=== PATIENT | female | born 1950 ===

== ENCOUNTER 2021-08-24 20:12 | Inpatient (IN) | payer MEDICAID ==
[~2021-08-24] VITALS: Ht 157.5 cm; Wt 68.9 kg
--- NOTE | 2021-08-24 20:22 | NUR ---
pt came in by ra c/o chest pain. pt a/o able to speak in complete sentences. per ra blood glucose is elevated above 400.
--- NOTE | 2021-08-24 20:27 | NUR ---
Dr. Hawk at bedside for MSE
[2021-08-24] MEDS ORDERED: NITROGLYCERIN OINT 1 GM PACKET TP ONE ×2 (20:30→20:56)
[2021-08-24] MEDS ORDERED: ACETAMINOPHEN ES 500 MG TABLET PO ONE (20:30)
[2021-08-24] MEDS ORDERED: ASPI81TA31 PO (20:34)
[2021-08-24] MEDS ORDERED: metoprolol PO (20:34)
[2021-08-24] MEDS ORDERED: LISI10TA29 PO (20:34)
[2021-08-24] MEDS ORDERED: atorvastatin PO (20:34)
[2021-08-24] MEDS ORDERED: amlodipine PO (20:34)
[2021-08-24] MEDS ORDERED: PIOG30TA10 PO (20:34)
[2021-08-24 20:55] LABS: HEMATOCRIT 24.3 % (31.2-41.9); MEAN CORPUSCULAR HEMOGLOBIN 32.7 uug (24.7-32.8); MEAN CORPUSCULAR VOLUME 97.2 fL (75.5-95.3); PLATELET COUNT (AUTO) 181 K/uL (179-408)
[2021-08-24] MEDS ORDERED: ACETAMINOPHEN ES 500 MG TABLET ONE (20:56)
[2021-08-24 21:02] LABS: CREATININE 2.1 mg/dL (0.6-1.3); POTASSIUM 4.7 mmol/L (3.5-5.1)
[2021-08-24 21:15] LABS: BILIRUBIN,DIRECT 0.1 mg/dL (0.0-0.2); BILIRUBIN,TOTAL 0.3 mg/dL (0.2-1.0); TOTAL PROTEIN, SERUM 7.3 g/dL (6.4-8.2)
--- NOTE | 2021-08-24 21:29 | NUR ---
Dr. Hawk sent a page out to Dr. Sainz for admission for pt.
[2021-08-24] MEDS ORDERED: ACETAMINOPHEN 325 MG TABLET PO PRN (21:45)
[2021-08-24] MEDS ORDERED: ONDANSETRON 4 MG/2 ML VIAL IV PRN (21:45)
[2021-08-24] MEDS ORDERED: DEXTROSE 50% 50 ML DISP.SYRIN IV PRN (21:45)
[2021-08-24] MEDS ORDERED: Z GUARD REMEDY PASTE 57 GM TUBE TOP PRN (21:45)
[2021-08-24] MEDS ORDERED: NITROGLYCERIN 0.4 MG/TAB BOTTLE SL PRN (21:45)
[2021-08-24] MEDS ORDERED: FUROSEMIDE 20 MG/2 ML VIAL IV ONE (21:45)
--- NOTE | 2021-08-24 22:20 | NUR ---
pt amb to bathroom pt was steady on her feet.
--- NOTE | 2021-08-24 22:32 | NUR ---
Dr. Sainz here to see pt.
[2021-08-24] MEDS ORDERED: FUROSEMIDE 20 MG/2 ML VIAL ONE (23:13)
--- NOTE | 2021-08-24 23:17 | NUR ---
report called to Todd pt to go to room 307
--- NOTE | 2021-08-24 23:55 | NUR ---
pt transferred to room 307 Todd RN in room to accept pt.
[2021-08-25] VITALS (7 sets, daily range): BP systolic 89–115; BP diastolic 29–60
[2021-08-25] MEDS ORDERED: HEPARIN SODIUM,PORCINE 5,000 UNITS/ML VIAL IV ONE (03:00)
[2021-08-25] MEDS ORDERED: HEPARIN/D5W DRIP 500 ML ONE (03:22)
--- NOTE | 2021-08-25 03:35 | NUR ---
Pt's troponin increased to 2.312 from 0.017; reported by lab at 0234H; referred to [facility]; orders made and carried out; started on heparin drip at 1000 units per hour and bolus given IVP; instructed pt not to take caffeinated drinks and food; continue to observe.
[2021-08-25] MEDS: HEPARIN/D5W DRIP 500 ML IV PRN ×2 (03:38→17:45)
[2021-08-25] MEDS: BLOOD SUGAR DIAGNOSTIC 1 EACH STRIP VI SCH ×4 (06:14→20:34)
[2021-08-25 06:30] LABS: HEMATOCRIT 21.6 % (31.2-41.9)
[2021-08-25 06:32] LABS: MEAN CORPUSCULAR HEMOGLOBIN 32.4 uug (24.7-32.8); PLATELET COUNT (AUTO) 166 K/uL (179-408)
[2021-08-25 07:05] LABS: ALANINE AMINOTRANSFERASE 70 U/L (14-59); ALKALINE PHOSPHATASE 48 U/L (50-136); ASPARTATE AMINOTRANSFERASE 62 U/L (15-37); BILIRUBIN,TOTAL 0.2 mg/dL (0.2-1.0); CARBON DIOXIDE 24 mmol/L (21-32); CHLORIDE 104 mmol/L (98-107); CHOLESTEROL 95 mg/dL (<200); CREATININE 1.9 mg/dL (0.6-1.3); GLUCOSE 125 mg/dL (74-106); HDL CHOLESTEROL 50 mg/dL (40-60); MAGNESIUM 2.5 mg/dL (1.8-2.4); PHOSPHOROUS 4.8 mg/dL (2.5-4.9); POTASSIUM 4.3 mmol/L (3.5-5.1); TOTAL PROTEIN, SERUM 6.4 g/dL (6.4-8.2); TRIGLYCERIDES < 15 MG/DL (30-150); UREA NITROGEN, BLOOD 54 mg/dL (7-18)
--- NOTE | 2021-08-25 08:30 | NUR ---
Received patient report from shift stacker nurse. Arrived to patients room with no distress or discomfort. Patient currently receiving 2L of Oxygen via Nasal Canula. IV site intact and patent. Bed left in lowest position with call light within reach. Comfort measures provided. Will continue to monitor patient.
[2021-08-25] MEDS: ASPIRIN 81 MG TAB.CHEW PO SCH (08:42)
[2021-08-25] MEDS: METOPROLOL TARTRATE 50 MG TABLET PO SCH ×2 (08:42→20:32)
[2021-08-25] MEDS: FAMOTIDINE 20 MG TABLET PO SCH (08:42)
[2021-08-25] MEDS ORDERED: HEPARIN SODIUM,PORCINE 5,000 UNITS/ML VIAL SQ SCH (09:00)
--- NOTE | 2021-08-25 09:00 | NUR ---
Heparin drip 1000 units/hr at 20 mL/hr. Repeat PTT drawn. Waiting for results
--- NOTE | 2021-08-25 10:07 | NUR ---
Troponin result 2.643. Dr. Tolliver notified with order for repeat at 1500
--- NOTE | 2021-08-25 11:40 | NUR ---
Followed up PTT results ordered for 914. Lab still unable to get results from PTT redrawn. Coordinated with pharmacy. Informed Dr. Sen of situation. Will continue with the same rate with Heparin drip at 1000 units/hr. Repeat CBC, PTT, and Troponin ordered for 1499.
[2021-08-25] MEDS: INSULIN REGULAR, HUMAN 300 UNIT/3 ML VIAL SQ PRN ×2 (11:58→20:47)
--- NOTE | 2021-08-25 14:00 | NUR ---
Followed up blood bank. Spoke with [facility]. Blood bank not able to prepare blood at this time. Will endorse to next shift for follow up.
--- NOTE | 2021-08-25 15:00 | NUR ---
Patients record requested from patients primary MD and head of digital. Will endorse to follow up
[2021-08-25 15:17] LABS: HEMATOCRIT 22.6 % (31.2-41.9); MEAN CORPUSCULAR HEMOGLOBIN 32.7 uug (24.7-32.8); MEAN CORPUSCULAR VOLUME 95.6 fL (75.5-95.3); PLATELET COUNT (AUTO) 167 K/uL (179-408)
[2021-08-25 16:40] LABS: *OCCULT BLOOD STOOL NEGATIVE (NEGATIVE)
--- NOTE | 2021-08-25 16:45 | NUR ---
PTT 166. Heparin drip stopped for 1 hour. Repeat PTT ordered in 6 hours at 2245. CBC & Troponin: 1.[address] Tolliver
--- NOTE | 2021-08-25 17:45 | NUR ---
Heparin drip rate decreased by 200 units to 800 units/hr at 16mL/hr restarted.
--- NOTE | 2021-08-25 18:43 | NUR ---
Patient denies chest pain. Heparin drip continued at 800 units.
[2021-08-25] MEDS ORDERED: ATORVASTATIN 40 MG TABLET PO SCH (21:00)
[2021-08-26 00:31] VITALS: BP 137/40
[2021-08-26 00:51] VITALS: BP 102/56
[2021-08-26 05:01] VITALS: BP 145/57
[2021-08-26] MEDS: BLOOD SUGAR DIAGNOSTIC 1 EACH STRIP VI SCH ×3 (06:56→16:23)
[2021-08-26 07:03] LABS: MEAN CORPUSCULAR HEMOGLOBIN 32.6 uug (24.7-32.8); MEAN CORPUSCULAR VOLUME 93.9 fL (75.5-95.3); PLATELET COUNT (AUTO) 173 K/uL (179-408)
[2021-08-26 07:15] LABS: BILIRUBIN,TOTAL 0.5 mg/dL (0.2-1.0); CREATININE 1.8 mg/dL (0.6-1.3); MAGNESIUM 2.4 mg/dL (1.8-2.4); PHOSPHOROUS 4.3 mg/dL (2.5-4.9); POTASSIUM 4.4 mmol/L (3.5-5.1); TOTAL PROTEIN, SERUM 7.4 g/dL (6.4-8.2)
--- NOTE | 2021-08-26 07:24 | NUR ---
Pt rested well in between care; tolerated blood transfusion; remains on heparin drip; no signs of bleeding; continue to monitor; continue plan of care; denies any pain.
[2021-08-26 07:30] VITALS: BP 130/37
--- NOTE | 2021-08-26 08:00 | NUR ---
AWAKE ALERT AND VERBALLY RESPONSIVE ABLE TO MAKE NEEDS KNOWN, DENIES SOB OR CHEST PAIN. NO SS OF BLEEDING, CONTINUE WITH HEPARIN DRIP. SR ON MONITOR
[2021-08-26] MEDS: FAMOTIDINE 20 MG TABLET PO SCH (08:12)
[2021-08-26] MEDS: ASPIRIN 81 MG TAB.CHEW PO SCH (08:12)
[2021-08-26] MEDS: METOPROLOL TARTRATE 50 MG TABLET PO SCH (08:13)
[2021-08-26] MEDS: INSULIN REGULAR, HUMAN 300 UNIT/3 ML VIAL SQ PRN (11:31)
[2021-08-26] MEDS ORDERED: CLOPIDOGREL 75 MG TABLET PO SCH (11:45)
--- NOTE | 2021-08-26 12:00 | NUR ---
SEEN BY DR NIX AND DR CRAVEN REGARDING PLAN OF CARE, PATIENT VERBALIZES DESIRE TO GO AMA. SEE MD NOTES. HEPARIN ISIS ANAYA. SR ON MONITOR
[2021-08-26] MEDS ORDERED: ENOXAPARIN SODIUM 80 MG/0.8 ML DISP.SYRIN SQ SCH (13:00)
[2021-08-26 15:27] VITALS: BP 120/42
[2021-08-26] MEDS ORDERED: CLOP75TA15 PO (16:20)
--- NOTE | 2021-08-26 17:09 | NUR ---
SEEN BY DR CRAEVN FOR FURTHER TEACHING, SEE NOTES OR DISCHARGE SUMMARY
== END 2021-08-26 19:30 | disposition left against medical advice (07) | DRG 190 ==
LOC: ER 20:16 → EDSEX 20:16 → TELE3 21:39 → TELE-TD3 08-25 02:57
PROVIDERS: ADMIT Hospitalist; ATTEND Hospitalist
PROC: 30233N1 Transfusion of Nonautologous Red Blood Cells into Peripheral Vein, Percutaneous Approach (ICD-10-PCS; principal; 2021-08-25)
DX: I21.4 Non-ST elevation (NSTEMI) myocardial infarction (principal); N17.0 Acute kidney failure with tubular necrosis; E44.1 Mild protein-calorie malnutrition; D63.1 Anemia in chronic kidney disease; E88.09 Other disorders of plasma-protein metabolism, not elsewhere classified; E11.65 Type 2 diabetes mellitus with hyperglycemia; D53.9 Nutritional anemia, unspecified; E78.5 Hyperlipidemia, unspecified; I25.10 Atherosclerotic heart disease of native coronary artery without angina pectoris; Z79.84 Long term (current) use of oral hypoglycemic drugs; Z95.1 Presence of aortocoronary bypass graft; F41.9 Anxiety disorder, unspecified; Z20.822 Contact with and (suspected) exposure to COVID-19; Z68.27 Body mass index [BMI] 27.0-27.9, adult; N18.30 Chronic kidney disease, stage 3 unspecified; I12.9 Hypertensive chronic kidney disease with stage 1 through stage 4 chronic kidney disease, or unspecified chronic kidney disease; E11.22 Type 2 diabetes mellitus with diabetic chronic kidney disease
CPT/HCPCS: 36415; 70030-TC; 71045; 76770; 83735; 84100; 85025; 85730; 86850; 86900; 86901; 86920; 93005; 93307; A4663; A9150; G0378; J1644; J1650; J1815; J1940; J7040; P9016